=== PATIENT | female | born 1950 | race Caucasian/White ===

== ENCOUNTER 2020-05-24 08:47 | Outpatient (CLI) | payer MEDICARE, SELFPAY ==
--- NOTE | ~2020-05-24 | MM_ITS ---
EXAMINATION: MM screening rusty BI w michael HISTORY: Screening TECHNIQUE: Craniocaudal and mediolateral oblique 3-D tomosynthesis images were obtained and synthetic 2-D images were generated. CAD analysis was submitted and interpreted. COMPARISON: Comparison to multiple prior studies sequentially, with oldest reviewed study dated 04/2013. BREAST PARENCHYMAL COMPOSITION: There are scattered areas of fibroglandular density. FINDINGS: There are subglandular silicone implants. There is no evidence of suspicious mass, calcific ation, or architectural distortion to suggest malignancy in either breast. There has been no suspicio us interval change. IMPRESSION: 1. No mammographic evidence of malignancy. 2. Recommend routine screening mammography in one year. BI-RADS Category 1: Negative Reviewed, dictated and finalized at location A.
== END 2020-05-24 08:48 | disposition home or self-care (01) ==
PROVIDERS: PCP Internal Medicine; Visit Provider Internal Medicine
DX: Z12.31 Encounter for screening mammogram for malignant neoplasm of breast (principal)
CPT/HCPCS: 77063; 77067

== ENCOUNTER 2020-10-10 13:05 | Outpatient (CLI) | payer MEDICARE, SELFPAY ==
--- NOTE | 2020-10-10 13:08 | ECG_ITS ---
Measurements Intervals [place] Rate: 64 P: 26 GA: 180 QRS: 8 QRSD: 86 T: 27 QT: 388 QTc: 400 Interpretive Statements SINUS RHYTHM BORDERLINE R WAVE PROGRESSION, ANTERIOR LEADS BASELINE ARTIFACT- I, II, III, AVR, AVL, AVF BORDERLINE ECG Electronically Signed On 10-10-2020 13:25:11 PALLIATIVE CARE SPECIALIST by Sukhdeep Nicholson D.O.
[2020-10-10 13:38] LABS: Anion Gap 8 mmol/L (8-16); Blood Urea Nitrogen 27 mg/dL (7-17); Calcium 9.9 mg/dL (8.4-10.2); Carbon Dioxide 32 mmol/L (22-30); Chloride 100 mmol/L (98-107); Estimated Glomerular Filt Rate 41; Glucose 106 mg/dL (65-105); Potassium 4.1 mmol/L (3.4-5.0); Sodium 140 mmol/L (137-145)
== END 2020-10-10 13:06 | disposition home or self-care (01) ==
LOC: ANHSURGERY 13:08
PROVIDERS: Anesthesiology; PCP Internal Medicine; Visit Provider Plastic Surgery
DX: Z79.899 Other long term (current) drug therapy (principal); I10 Essential (primary) hypertension; Z01.818 Encounter for other preprocedural examination; R94.31 Abnormal electrocardiogram [ECG] [EKG]
CPT/HCPCS: 36415; 80048; 93005

== ENCOUNTER 2020-10-12 01:10 | Outpatient (CLI) | payer MEDICARE, SELFPAY ==
[2020-10-12 20:15] LABS: SARS-CoV-2 RNA PCR Negative
== END 2020-10-12 01:11 | disposition home or self-care (01) ==
LOC: ANHCOVIDDT 01:11
PROVIDERS: PCP Internal Medicine; Visit Provider Plastic Surgery
DX: Z01.818 Encounter for other preprocedural examination (principal); Z20.828 Contact with and (suspected) exposure to other viral communicable diseases
CPT/HCPCS: 87635; C9803; U0003

== ENCOUNTER 2020-10-16 00:39 | Day surgery (SDC) | payer MEDICARE, SELFPAY ==
[2020-10-09 12:32] VITALS: BMI 33.5
[2020-10-16 06:04] VITALS: BP 143/69; PULSE 79; RESP 20; TEMP 36.3; O2SAT 98
[2020-10-16] MEDS: LACTATED RINGERS 1,000 ML 30 ML IV CONT (06:30)
--- NOTE | 2020-10-16 06:59 | WPDHPUPDATE1 ---
History and Physical Update Update Date/Time: 10/16/20 06:59 History and Physical has been reviewed, including an updated exam of the patient. There are NO changes in the patient's condition. Risks, benefits, and alternatives have been discussed and questions answered. Patient agrees to proceed with procedure.
--- NOTE | 2020-10-16 07:06 | WPDANESEPPF ---
Anes - Initial Pre Proc Eval Procedure: Operation Date: 10/16/20 07:30 Proposed Procedures p Excision Basal Cell Carcinoma Right Lateral Nasal Lobe With Frozen Section, Excision Of Basal Cell Carcinoma Left Anterior Nasal Lobe With Frozen Section, Possible Full Thickness Skin Graft Or Local Tissue Transfer Both Sites - Michael Sommers MD Date/Time: 10/16/20 07:06 Surgeon: Michael Sommers MD Pre Op Diagnosis: Basal Cell CA R Lateral Lobe, Basal Cell CA L Ante Patient Data Age: 69 Gender: F Height: 5 ft 4 in Weight: 90.75 kg Last Vital Signs Temp 97.4 F L 10/16/20 06:04 Pulse 79 10/16/20 06:04 Resp 20 10/16/20 06:04 BP 143/69 H 10/16/20 06:04 Pulse Ox 98 10/16/20 06:04 Allergies Allergy/AdvReac Type Severity Reaction Status Date / Time No Known Allergies Allergy Mild Unverified 10/16/20 06:28 Home Medications Medication Instructions Recorded Confirmed Type aspirin [Aspirin Low Dose] 81 mg PO DAILY 10/09/20 10/16/20 History lisinopril-hydrochlorothiazide 1 tablet QAM 10/09/20 10/16/20 History pravastatin 40 mg QAM 10/09/20 10/16/20 History Patient hx anesthesia problems: none Family hx anesthesia problems: none [facility] Past Medical History Medical History (Updated 10/16/20 @ 07:03 by Minesh Aviles MD) Hyperlipidemia Hypertension Social History Social History Smoking status: Never smoker Alcohol intake: never Substance use: never Living arrangements: with family Spiritual care concerns: No Anes - Eval Final PreProcedure Day of Procedure 10/16/20 07:06 Patient weight: obese Heart: regular rate and rhythm Lungs: clear to auscultation Airway: Mallampati scale class II Neurological: alert and oriented Last oral intake: >/= 8 hours ASA classification: III Emergent: no Anesthetic plan: proceed Anesthesia type and monitoring: general GIVS (may use LMA ) and standard monitoring Informed Consent: The patient's anesthetic plan and its attendant risks and benefits were discussed with the patient/family/POA. Questions were solicited and answers provided to the satisfaction of the patient/family/POA.
[2020-10-16] MEDS: MIDAZOLAM HCL (*CRX) 2 MG/2 ML VIAL IV PUSH (07:17)
[2020-10-16] MEDS: LIDO 1%/EPINEPHRINE 1:100,000 20 ML VIAL 12 ML INFILTRATE (08:31)
[2020-10-16] MEDS: BACITRACIN OINTMENT 15 GM TUBE 1 APPLIC TOPICAL (10:05)
[2020-10-16 10:23] VITALS: BP 112/65; PULSE 67; RESP 20; TEMP 36; O2SAT 92
--- NOTE | 2020-10-16 10:44 | P.OP_ITS ---
Procedure Note - Detailed Date of procedure: 10/16/20 Pre-op diagnosis: Basal Cell CA R Lateral Lobe, Basal Cell CA L Ante Post-op diagnosis: same Procedure performed: 1. 1.5 cm excision of basal cell carcinoma of the right posterior nasal lobule with frozen section x2 and local tissue transfer 5 sq cm. 2. 1.5 cm excision left interior nasal lobule with frozen section x2 and full- thickness skin graft 1.5 sq cm Description of procedure: The 2 sites on the nasal lobule were marked as the patient was in the holding area. These were clearly visible as the right posterior nasal lobule and the left anterior nasal lobule. She was taken to the operating room where she was placed supine on the operating table a time-out was held and confirmed. She was given IV sedation. The Face was prepped and draped in usual fashion. The 2 sites were remarked and carefully inspected under loupe magnification for peripheral margin marking. Each was infiltrated with 1% lidocaine with epinephrine. The lesion from the left side was taken 1st as a f ull-thickness skin ellipse. The most superior aspect was marked with a suture for frozen section. The pathologist reported later that the margins between 2 and 5:00 o'clock were positive for basal cell carcinoma. A 2nd ellipse was taken from the 12 to 6 o'clock margin. The tissue was marked at the 3:00 o'clock new margin and sent for frozen section. The pathologist reported margins were free. The 2nd specimen from the right posterior nasal lobule was taken as a circular ellipse and sent to the pathologist. He reports that margins are positive including the deep margin. A 1-1/2 mm peripheral re-excision was done and the specimen included the base of the wound. The pathologist reports on that tissue that margins were free except for a small new focus at the 6:00 o'clock tip that probably represents a new tumor and was quite small. An ellipse at the 6:00 o'clock margin was taken and sent for permanent section. The left nasal tip wound was closed with a full-thickness skin graft taken from the left upper neck. This was defatted and inset with 6 0 nylon including quilting sutures. She is discharged with prescriptions for Keflex 500 mg #15 and Tramadol 50 mg #10. Surgeon: Michael Sommers MD
[2020-10-16 10:50] VITALS: BP 104/56; PULSE 59; RESP 18; O2SAT 92
[2020-10-16 11:20] VITALS: BP 109/60; PULSE 55; RESP 18; O2SAT 94
[2020-10-16 11:40] VITALS: BP 110/54; PULSE 59
== END 2020-10-16 11:46 | disposition home or self-care (01) ==
PROVIDERS: PCP Internal Medicine; Visit Provider Plastic Surgery
PROC: (CPT 11642; principal; 2020-10-16 07:30)
DX: C44.311 Basal cell carcinoma of skin of nose (principal); I10 Essential (primary) hypertension; E78.5 Hyperlipidemia, unspecified; E66.9 Obesity, unspecified; Z68.34 Body mass index [BMI] 34.0-34.9, adult
CPT/HCPCS: 11642; 15260; 14060; 36415; 80048; 87635; 88305; 88331; 93005; A9270; C9803; J2250; J2704; J7120; U0003

== ENCOUNTER 2021-10-10 10:40 | Outpatient (CLI) | payer MEDICARE, SELFPAY ==
--- NOTE | ~2021-10-10 | MM_ITS ---
EXAMINATION: MM scrn rusty implant BI w michael HISTORY: Screening mammogram TECHNIQUE: Craniocaudal and mediolateral oblique 3-D tomosynthesis images with implant displacement a nd synthetic 2-D images were generated. Craniocaudal and mediolateral oblique views of the breasts wi thout implant displacement were obtained using full field digital mammography. CAD analysis was submi tted and interpreted. COMPARISON: Comparison to multiple prior studies sequentially, with oldest reviewed study dated 11/16. BREAST PARENCHYMAL COMPOSITION: There are scattered areas of fibroglandular density. FINDINGS: There is no evidence of suspicious mass, calcification, or architectural distortion to sugg est malignancy in either breast. There has been no suspicious interval change. IMPRESSION: 1. No mammographic evidence of malignancy. 2. Recommend routine screening mammography in one year. BI-RADS Category 1: Negative Reviewed, dictated and finalized at location A. 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
== END 2021-10-10 10:41 | disposition home or self-care (01) ==
LOC: ANHIMG 10:43
PROVIDERS: PCP Internal Medicine; Visit Provider Nurse Practitioner Obstetrics & Gynecology
DX: Z12.31 Encounter for screening mammogram for malignant neoplasm of breast (principal)
CPT/HCPCS: 77063; 77067

== ENCOUNTER → 2022-02-24 12:21 | Outpatient (CLI) | payer MEDICARE, SELFPAY ==
--- NOTE | ~2022-02-24 | DEXA_ITS ---
Bone Density Report Name: EL ADRIAN Age: 71 Sex: Female Ethnicity: White Date of : 1950 Indication: postmenopausal; screening for osteoporosis; parental hip fracture; Referring Provider: RAYMUNDO, SALLY [place] Study: Bone densitometry was performed. Exam Date: February 24, 2022 Accession number: [id number] Bone Density: Region BMD T-score Z-score Classification AP Spine (L1-L4) 1.220 1.6 3.8 Normal Femoral Neck (Left) 0.932 0.7 2.6 Normal Total Hip (Left) 1.192 2.0 3.6 Normal Femoral Neck (Right) 0.915 0.6 2.5 Normal Total Hip (Right) 1.242 2.5 4.0 Normal Total Hip Mean 1.217 2.3 3.8 Normal World Health Organization criteria for BMD impression classify patients as: Normal (T-score at or above -1.0), Osteopenia (T-score between -1.0 and -2.5), or Osteoporosis (T-score at or below -2.5). 10-year Fracture Risk: FRAX not reported because: All T-scores for Spine Total, Hip Total, Femoral Neck at or above -1.0 Previous Exams: Region Exam Age BMD T-score BMD Change BMD Change Date g/cm2 vs Baseline vs Previous AP Spine(L1-L4) 02/24/2022 71 1.220 1.6 -0.038 0.007 12/07/2018 68 1.213 1.5 -0.045 -0.081* 08/31/2012 61 1.294 2.2 0.036 0.078* 05/06/2009 58 1.216 1.5 -0.042 0.025* 08/06/2006 55 1.191 1.3 -0.067 -0.067 09/13/2002 51 1.258 1.9 Total Hip(Left) 02/24/2022 71 1.192 2.0 -0.064 -0.100 12/07/2018 68 1.292 2.9 0.035 0.007 08/31/2012 61 1.284 2.8 0.028 0.144* 05/06/2009 58 1.141 1.6 -0.116 -0.127* 08/06/2006 55 1.268 2.7 0.012 0.012 09/13/2002 51 1.256 2.6 Total Hip(Right) 02/24/2022 71 1.242 2.5 -0.052 0.060 12/07/2018 68 1.182 2.0 -0.112 -0.108* 08/31/2012 61 1.289 2.8 -0.005 0.103* 05/06/2009 58 1.186 2.0 -0.108 -0.116* 08/06/2006 55 1.302 3.0 0.008 0.008 09/13/2002 51 1.294 2.9 *Denotes significance at 95% confidence level, LSC for AP Spine = 0.022 g/cm2, LSC for Total Hip = 0.027 g/cm2 Clinical Information Provided by Patient: Parent has had a hip fracture Has used the following medications: Vitamin D, Calcium, MTV Patient maximum height was 63.5 Menopause Age: 48 No regular weight bearing exercise Drinks ca
== END ==
PROVIDERS: PCP Internal Medicine; Visit Provider Internal Medicine
DX: Z13.820 Encounter for screening for osteoporosis (principal); Z78.0 Asymptomatic menopausal state; M81.0 Age-related osteoporosis without current pathological fracture
CPT/HCPCS: 77080

== ENCOUNTER 2024-06-13 07:00 | Outpatient (NON) | payer MEDICARE, SELFPAY | END 2024-06-13 07:01 | disposition home or self-care (01) | LOC: ANHLAB 06-14 09:15 | PROVIDERS: PCP Internal Medicine; Visit Provider Internal Medicine Gastroenterology | DX: Z86.010 Personal history of colon polyps (principal) | CPT/HCPCS: 88305 ==

== ENCOUNTER 2024-06-13 07:23 | Day surgery (SDC) | payer MEDICARE, SELFPAY ==
[2024-05-03 11:13] VITALS: BMI 28.5
[2024-06-05 12:16] VITALS: BMI 28.5
--- NOTE | 2024-06-12 12:54 | PM.HPGS ---
History of Present Illness History of Present Illness Consent: Risks, benefits, and alternatives have been discussed and questions answered. Patient agrees to proceed with procedure. Chief complaint: Personal History of Colon Polyps Narrative: Dorina Moss is a 73 year old female with history of colon polyps. Review of Systems Review of Systems: All systems reviewed & are unremarkable except as noted in HPI and below PMFSH Past Medical History Medical History Hyperlipidemia Hypertension Social History Social History Smoking status: Never smoker Alcohol intake: current Drinks per week: 2 Substance use: never Substance use type: does not use Living arrangements: alone Spiritual care concerns: No Meds Home Medications and Allergies Home Medications Medication Instructions Recorded Confirmed Type aspirin 81 mg tablet,delayed 81 mg PO DAILY 10/09/20 06/13/24 History release (Amanda Low Dose Aspirin) lisinopril 20 1 tablet QAM 10/09/20 06/13/24 History mg-hydrochlorothiazide 12.5 mg tablet atorvastatin 20 mg tablet 20 mg PO HS 06/05/24 06/13/24 History prednisone 5 mg tablet 7.5 mg PO DAILY 06/05/24 06/13/24 History Allergies Allergy/AdvReac Type Severity Reaction Status Date / Time No Known Allergies Allergy Mild Verified 06/13/24 08:05 Exam Resp: Auscultation: clear to auscultation bilaterally Cardio: Rate: regular rate Rhythm: regular rhythm GI: GI Palp: Yes Soft to palpation and No Tenderness to palpation present (GI) Assessment and Plan Assessment and plan (1) Personal history of colonic polyps: Code(s): Z86.010 - Personal history of colonic polyps Status: Acute Assessment and Plan: Colonoscopy with possible biopsy or polypectomy or cautery or injection of substances.
[2024-06-13 08:06] VITALS: BP 109/65; PULSE 61; RESP 15; TEMP 36.8; O2SAT 97
[2024-06-13] MEDS: LACTATED RINGERS 1,000 ML 150 ML IV CONT (08:11)
--- NOTE | 2024-06-13 09:30 | WPDANESEPPF ---
Anes - Initial Pre Proc Eval Procedure: Operation Date: 06/13/24 09:30 Proposed Procedures p Diagnostic Colonoscopy - Guille Lott MD Date/Time: 06/13/24 09:30 Surgeon: Guille Lott MD Pre Op Diagnosis: Personal History of Colon Polyps Patient Data Age: 73 Gender: F Height: 1.6 m Weight: 70.4 kg Last Vital Signs Temp 36.8 C 06/13/24 08:06 Pulse 61 06/13/24 08:06 Resp 15 06/13/24 08:06 BP 109/65 06/13/24 08:06 Pulse Ox 97 06/13/24 08:06 O2 Del Method Room Air 06/13/24 08:06 Allergies Allergy/AdvReac Type Severity Reaction Status Date / Time No Known Allergies Allergy Mild Verified 06/13/24 08:05 Home Medications Medication Instructions Recorded Confirmed Type aspirin 81 mg tablet,delayed 81 mg PO DAILY 10/09/20 06/13/24 History release (Amanda Low Dose Aspirin) lisinopril 20 1 tablet QAM 10/09/20 06/13/24 History mg-hydrochlorothiazide 12.5 mg tablet atorvastatin 20 mg tablet 20 mg PO HS 06/05/24 06/13/24 History prednisone 5 mg tablet 7.5 mg PO DAILY 06/05/24 06/13/24 History Patient hx anesthesia problems: none Family hx anesthesia problems: none Results Review: All pre-operative results and documents have been reviewed as part of the pre-operative evaluation. [facility] Past Medical History Medical History (Updated 06/13/24 @ 09:30 by Duncan Durbin MD) Hyperlipidemia Hypertension Sarcoid Social History Social History Smoking status: Never smoker Alcohol intake: current Drinks per week: 2 Substance use: never Substance use type: does not use Living arrangements: alone Spiritual care concerns: No Anes - Eval Final PreProcedure Day of Procedure 06/13/24 09:30 Patient weight: overweight Heart: regular rate and rhythm Lungs: clear to auscultation Airway: Mallampati scale class II Neurological: alert and oriented Last oral intake: >/= 8 hours ASA classification: III Emergent: no Anesthetic plan: proceed Anesthesia type and monitoring: general GIVS and standard monitoring Results Review: All pre-operative results and documents have been reviewed as part of the pre-operative evaluation. Informed Consent: The patient's anesthetic plan and its attendant risks and benefits were discussed with the patient/family/POA. Questions were solicited and answers provided to the satisfaction of the patient/family/POA.
[2024-06-13 09:57] VITALS: BP 86/48; PULSE 56; RESP 14; O2SAT 99
[2024-06-13 10:07] VITALS: BP 104/51; PULSE 53; RESP 18; O2SAT 100
--- NOTE | 2024-06-13 10:09 | WPDANESPN ---
Anes - Prog Note Post-Op Date/Time: 06/13/24 10:09 Cardiovascular status: normal Respiratory status: normal Airway patency: baseline Mental status: baseline Post-Op hydration status: normal Vital Signs: Last Vital Signs Temp 36.8 C 06/13/24 08:06 Pulse 61 06/13/24 08:06 Resp 15 06/13/24 08:06 BP 109/65 06/13/24 08:06 Pulse Ox 97 06/13/24 08:06 O2 Del Method Room Air 06/13/24 08:06 Pain Score (VAS): 0/10 I/O: Intake & Output 06/12/24 06/13/24 06/13/24 23:59 07:59 15:59 Intake Total 400 Balance 400 Patient Feedback: Patient satisfied with anesthetic care.
[2024-06-13 10:17] VITALS: BP 88/56; PULSE 56; RESP 18; O2SAT 99
== END 2024-06-13 10:25 | disposition home or self-care (01) ==
PROVIDERS: PCP Internal Medicine; Visit Provider Internal Medicine Gastroenterology
PROC: 0DJD8ZZ Inspection of Lower Intestinal Tract, Via Natural or Artificial Opening Endoscopic (ICD-10-PCS; CPT 45378; principal; 2024-06-13 09:30)
DX: Z86.010 Personal history of colon polyps (principal); Z12.11 Encounter for screening for malignant neoplasm of colon; D12.0 Benign neoplasm of cecum; K57.30 Diverticulosis of large intestine without perforation or abscess without bleeding; K64.8 Other hemorrhoids
CPT/HCPCS: 45385

== ENCOUNTER 2024-07-10 08:28 | Outpatient (CLI) | payer MEDICARE, SELFPAY ==
--- NOTE | ~2024-07-10 | MM_ITS ---
EXAMINATION: MM scrn rusty implant BI w michael HISTORY: Screening mammogram TECHNIQUE: Craniocaudal and mediolateral oblique 3-D tomosynthesis images with implant displacement a nd synthetic 2-D images were generated. Craniocaudal and mediolateral oblique views of the breasts wi thout implant displacement were obtained using full field digital mammography. CAD analysis was submi tted and interpreted. COMPARISON: 10/10/2021, 05/24/2020 BREAST PARENCHYMAL COMPOSITION: The breasts are heterogeneously dense, which may obscure small masses . FINDINGS: There is no evidence of suspicious mass, calcification, or architectural distortion to sugg est malignancy in either breast. There has been no suspicious interval change. IMPRESSION: No mammographic evidence of malignancy. Recommend routine screening mammography in one year. BI-RADS Category 1: Negative Reviewed, dictated and finalized at [facility].
== END 2024-07-10 08:29 | disposition home or self-care (01) ==
LOC: ANHIMG 08:29
PROVIDERS: PCP Internal Medicine; Visit Provider Nurse Practitioner Obstetrics & Gynecology
DX: Z12.31 Encounter for screening mammogram for malignant neoplasm of breast (principal)
CPT/HCPCS: 77063; 77067

== ENCOUNTER 2025-03-05 08:13 | Outpatient (CLI) | payer MEDICARE, SELFPAY ==
--- NOTE | ~2025-03-05 | DEXA_ITS ---
Bone Density Report Name: EL ADRIAN Age: 74 Sex: Female Ethnicity: White Date of : 1950 Indication: postmenopausal; screening for osteoporosis; Referring Provider: RAYMUNDO, SALLY [place] Study: Bone densitometry was performed. Exam Date: March 05, 2025 Accession number: [id number] Bone Density: Region BMD T-score Z-score Classification AP Spine(L1-L4) 1.135 0.8 3.2 Normal Femoral Neck (Left) 0.757 -0.8 1.2 Normal Total Hip (Left) 1.011 0.6 2.3 Normal Femoral Neck (Right) 0.793 -0.5 1.5 Normal Total Hip (Right) 1.047 0.9 2.6 Normal Total Hip Mean 1.029 0.8 2.5 Normal World Health Organization criteria for BMD impression classify patients as: Normal (T-score at or above -1.0), Osteopenia (T-score between -1.0 and -2.5), or Osteoporosis (T-score at or below -2.5). 10-year Fracture Risk: FRAX not reported because: All T-scores for Spine Total, Hip Total, Femoral Neck at or above -1.0 Clinical Information Provided by Patient: Has used the following medications: Calcium Patient maximum height was 63.0 Menopause Age: 51 No regular weight bearing exercise Drinks caffeinated beverages Onset of menses at age 13 Number of children 2 Impression: The patient has normal bone mass. Discussion: BONE DENSITY IS ABOVE THE MINIMUM DESIRABLE LEVEL AT ALL SKELETAL SITES TESTED. This patient?s bone mineral density is above the minimum desirable level (T-score -1.0 or better) at all sites measured. The patient should follow a healthful lifestyle (good nutrition with adequate calcium and vitamin D, and appropriate weight-bearing exercise). Follow-Up: Consider repeating this study in 5 years or sooner if there is some new clinical indication. Reported by: YOHANA on 03/05/2025 8:51:00 AM. Reviewed, dictated and finalized at location AMin [facility]
--- OUTSIDE RECORDS SUMMARY | 2025-03-05 08:21 | XMS_ITS | Clinical Summary ---
Author Organization [facility] Address [address] [place] [address] Phone Care Team Providers Care Guide Dog Trainer Name Role Phone Annabelle Nuno MD Primary Care Provider [phone] Allergies No known active allergies Medications ESTRADIOL/NORETH AC (ACTIVELLA PO) Take by mouth. Active Active Problems Patient Care Coordination No te Formatting of this note migh t be different from the original. Dr victor hugo matthews No known active problems Family History Medical History Relation Name Comments Cancer Father prostate & bone Cancer Mother ? 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 Gender Identity Not on file Sexual Orientation Not on file Occupation Industry Job Start Date Job End Date Not on file Not on file Not on file Not on file Last Filed Vital Signs Vital Sign Reading Time Taken Comments Blood Pressure 140/87 12/02/2009 1:53 PM STAFF ANESTHESIOLOGIST Pulse - - Temperature - - Respiratory Rate - - Oxygen Saturation - - Inhaled Oxygen Concentration - - Weight 99.8 kg (220 lb) 12/02/2009 1:53 PM STAFF ANESTHESIOLOGIST Height 162.6 cm (5' 4 ) 12/02/2009 1:53 PM STAFF ANESTHESIOLOGIST Body Mass Index 37.76 12/02/2009 1:53 PM STAFF ANESTHESIOLOGIST Plan of Treatment Health Maintenance Due Date Last Done Comments DTAP/TDAP/TD VACCINES (1 - Tdap) 1969 COLORECTAL SCREENING 1995 Colorectal Cancer Screening 1995 FIT-DNA Q 3 years 1995 FIT/FOBT Q 1 year 1995 Flex Sig/CT Colonography Q 5 years 1995 PNEUMOCOCCAL VACCINE 50+ YEA RS (1 of 1 - PCV) 2000 ZOSTER VACCINE (1 of 2) 2000 BREAST CANCER SCREENING 06/04/2011 06/04/20 10, 12/02/2009, 05/09/2009, Additional history exists OSTEOPOROSIS SCREENING 2015 INFLUENZA VACCINE (#1) 2024 RSV VACCINE (60+ or ) (1 - 1-dose 75+ series) 2025 Procedures Procedure Name Priority Date/Time Associated Diagnosis Comments MAMMO SCREEN BILAT W OR WO CAD Routine 06/04/2010 from Last 3 Months or Most Recently Relevant to Health Maintenance Results * MAMMO DIGITAL SCREEN BILAT (06/04/2010) Anatomical Region Laterality Modality Breast Bilateral Other us Abstract Provider MAMMO ORDERABLES Final Result from Last 3 Months or Most Recently Relevant to Health Maintenance Care Teams Guide Dog Trainer Relationship Specialty Start Date End Date Annabelle Nuno MD [address] [place] [address] PCP - General 05/30/09
--- OUTSIDE RECORDS SUMMARY | 2025-03-05 08:21 | XMS_ITS | Referral Summary ---
Author Organization [facility] Address [address] [place] [address] Care Team Providers Care Testing Director Name Role Phone Asher Rodriguez MD Primary Care Provider Encounters Date Type Department Care Team Description 01/29/2025 Orders Only [facility] [address] [facility] 8th [place] [address] [place] [id number] Mata Olvera MD 01/29/2025 9:58 AM CDT - 01/29/2025 11:59 PM CDT Hospital Encounter [facility] [address] [place] [address] Mata Olevra MD Sarcoidosis Discharge Disposition: Discharge to home or self care 01/29/2025 12:30 PM CDT Office Visit [facility] [address] [facility] 8th [place] [address] [place] [id number] Mata Olvera MD Sarcoidosis (Primary Dx) 01/29/2025 10:33 AM CDT - 01/29/2025 11:59 PM CDT Hospital Encounter [facility] [address] [facility] [address] [place] [id number] Sarcoidosis Discharge Disposition: Discharge to home or self care from Last 3 Months Allergies No known active allergies Medications atorvastatin (LIPITOR) 20 mg tabletIndicati ons:hyperlipid emia Take 1 tablet (20 mg total) by mouth every morning Active calcium carbonate (OS-AISHWARYA) 1,625 mg (650 mg elemental) tabletIndicati ons:Hypocalcem ia Prevention Take 1 tablet (1,625 mg total) by mouth every morning Active turmeric 400 mg capsuleIndicat ions:supplemen t Take 500 mg by mouth Curcumin also Active biotin 10,000 mcg capsuleIndicat ions:Biotin Deficiency Take 1 capsule (10,000 mcg total) by mouth every morning Active acetaminophen (TYLENOL) 500 mg tablet Take 1 tablet (500 mg total) by mouth every 6 (six) hours as needed for pain Active oxyCODONE (ROXICODONE) 5 mg immediate release tabletIndicati ons:Pain Take 1 tablet (5 mg total) by mouth every 4 (four) hours as needed for pain 30 tablet 03/19/20 Active Additional Information Patient not taking.Reported on 04/26/2023 polyethylene glycol (MIRALAX) 17 gram packetIndicati ons:constipati on Take 1 packet (17 g total) by mouth daily as needed for constipation May obtain over the counter and use as directed. 03/19/20 Active Additional Information Patient not taking.Reported on 04/26/2023 ibuprofen (ADVIL,MOTRIN) 200 mg tab/cap Take 2 tablet/capsule (400 mg total) by mouth every 6 (six) hours as needed for pain May obtain over the counter and use as directed. 03/19/20 23 Active vitamin E (AQUASOL E) 200 unit capsule Take 1 capsule (200 Units total) by mouth every morning 03/19/20 23 Active lisinopril-hyd roCHLOROthiazi de (ZESTORETIC) 20-12.5 mg per tablet Take 1 tablet by mouth daily 04/07/20 23 Active multivitamin capsule Multivitamin 50 Plus tablet Take 1 tablet every day by oral route. 04/12/20 20 Active ferrous sulfate 325 mg (65 mg of elemental iron) tabletIndicati ons:Iron Deficiency Anemia Take 1 tablet (65 mg of elemental iron total) by mouth 3 (three) times a day with meals Active cyanocobalamin (Vitamin B-12) 1,000 mcg tabletIndicati ons:Prevention of Vitamin B12 Deficiency Take 1 tablet (1,000 mcg total) by mouth daily Active mycophenolate mofetil (CELLCEPT) 500 mg tablet Take 1 tablet (500 mg total) by mouth 2 (two) times a day 60 tablet 03/14/20 24 025 Active azaTHIOprine (IMURAN) 50 mg tabletIndicati ons:autoimmune disease,[place] d Take 3 tablets (150 mg total) by mouth daily 90 tablet 2 11/30/19 25 Active umeclidinium-v ilanteroL (Anoro Ellipta) 62.5-25 mcg/actuation blister with device Inhale 1 puff by mouth once daily 60 each 5 02/07/20 25 Active umeclidinium-v ilanteroL (ANORO ELLIPTA) 62.5-25 mcg/actuation blister with device Inhale 1 puff daily 60 each 5 07/31/20 24 025 Discontinued predniSONE (DELTASONE) 2.5 mg tablet Take 1 tablet (2.5 mg) by mouth daily for 14 days, THEN 1 tablet (2.5 mg) every other day for 14 days. 21 tablet 01/30/20 25 025 Active Problems Patient Care Coordination No te Formatting of this note migh t be different from the original. Referring Provider: Asher Rodriguez MD This is a 72-year-old female presenting to us with a pulmonary nodule. She has a medical history significant for hypercholesteremia, anxiety, hypertension and osteoarthritis. She underwent a chest x-ray on 01/28/2023. There are numerous nodules throughout both lungs, likely noncalcified. There may be a calcified granuloma in the right lung base near the costophrenic angle. No pneumothorax or pleural effusions. The heart is not enlarged. No fractures are identified about the bony thorax. There may be a retrocardiac hiatal hernia. There are bilateral breast implants. She underwent a chest CT on 01/29/2023. There are numerous noncalcified pulmonary nodules throughout both lungs. A few of the dominant nodules are listed here: 10 mm in the right lower lobe; 12 mm in the right middle lobe; 10 mm in the left lower lobe. No pneumothorax, pulmonary edema, pleural effusions or consolidative infiltrates. There are numerous enlarged mediastinal lymph nodes. No suspicious axillary adenopathy. The heart is borderline enlarged. There are extensive coronary artery calcifications. The central pulmonary arteries are ectatic. No thoracic aortic aneurysm. There are bilateral prepectoral breast implants. The thyroid is not enlarged and is not appear nodular. There is a large paraesophageal hiatal hernia measuring 11 cm transverse. There is an intraosseous hemangioma involving the T9 vertebral body. No fractures, lytic lesions or blastic lesions are identified about the bony thorax. There is moderate thoracic degenerative disc disease. There is fecal retention and diverticulosis involving the partially visualized colon. No adrenal nodules are identified bilaterally. No masses are identified in the liver, which is not fully imaged here. She underwent a CT of the abdomen and pelvis on 01/29/2023. There are noncalcified pulmonary nodules in the bilateral lung bases. There is mild patchy air trapping in the bilateral lung bases. Large paraesophageal hernia is re-identified measuring 12 cm transverse. The liver, spleen, gallbladder, pancreas, kidneys and adrenal glands are unremarkable. No abdominal aortic aneurysm or dissection. There are atherosclerotic calcification of the abdominal aorta and major branches. 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 There is a small fatty umbilical hernia. No abnormal bowel dilatation, free air, free fluid or suspicious adenopathy. There is fecal retention in the mid to distal colon. There are colonic diverticula, greatest in the sigmoid colon, without evidence of acute diverticulitis. Pessary device is present. The appendix is not definitely visualized, and there are no secondary signs of acute appendicitis. The uterus and urinary bladder unremarkable. There are small fatty bilateral inguinal indirect hernias. There is advanced lumbar degenerative disc disease and facet arthropathy with moderate spinal canal stenosis at L4 through L5; significant neural foraminal stenosis in the right at L1 through L2 and L3 through L4; significant neural foraminal stenosis at the left L3 through L4 and L5 through S1; grade 1 anterior listhesis L4 on L5 without evidence of spondylolysis. No lytic or blastic lesions are identified within the visualized bony structures to suggest bony metastasis. She is here for further surgical evaluation and discussion. Problem Noted Date Diagnosed Date Sarcoidosis 04/26/2023 Lung nodule 03/18/[address] 03/09/2023 Hiatal hernia without gangrene and obstruction 0 03/09/2023 Presence of pessary 03/09/2023 Uterine prolapse 02/06/2022 03/09/2023 Social History Tobacco Use Types Packs/Day Years Used Date Smoking Tobacco: Never Passive Smoke Exposure: Past Smokeless Tobacco: Never Tobacco Cessation:Counseling Given: Not Answered AUDIT-C Answer Date Recorded Q1: How often do you have a drink containing alc ohol? Monthly or less 03/18/2023 Q2: How many drinks containi ng alcohol do you have on a typical day when you are drinking? 1 or 2 03/18/2023 Q3: How often do you have si x or more drinks on one occasion? Never 03/18/2023 Personal Safety Answer Date Recorded Have you ever been in or are you currently in a harmful physical or emotional relationship or is someone making you feel afraid or unsafe? 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 Gender Identity Not on file Sexual Orientation Not on file Last Filed Vital Signs Vital Sign Reading Time Taken Comments Blood Pressure 120/74 01/29/2025 12:44 PM CDT Pulse 80 01/29/2025 12:44 PM CDT Temperature 36.8 C (98.2 F) 01/29/2025 12:44 PM CDT Respiratory Rate 18 01/29/2025 12:44 PM CDT Oxygen Saturation 95% 01/29/2025 12:44 PM CDT Inhaled Oxygen Concentration - - Weight 74.4 kg (164 lb) 01/29/2025 12:44 PM CDT Height 154.9 cm (5' 1 ) 01/29/2025 12:44 PM CDT Body Mass Index 30.99 01/29/2025 12:44 PM CDT Plan of Treatment Not on file Procedures Procedure Name Priority Date/Time Associated Diagnosis Comments PULMONARY FUNCTION TEST (PFT) Routine 01/29/2025 11:[address] CHEST WO CONTRAST Schedule Routine, Read Routine (OP Routine) 01/29/2025 10:22 AM CDT Sarcoidosis from Last 3 Months Results * Pulmonary Function Test - (01/29/2025 11:45 AM CDT) FVC PRE 2.69 L [facility] FVC %PRE PRED 114 % [facility] FEV1 PRE 1.65 L [facility] FEV1 %PRE PRED 89 % [facility] FEV1/FVC PRE 61.3 % [facility] Anatomical Region Laterality Modality PFT 01/29/2025 11:3 0 AM CDT Narrative 01/29/2025 4:56 PM CDT Table formatting from the original result was not included. [facility] Division of Pulmonary & Critical Care Medicine [address] [place] [address]; [place] [address]; [place] [address]; [phone] Pulmonary Function Laboratory Pulmonary Stress Test Simple/Oxygen Assessment Patient: Dorina Bird Date: 01/29/2025 : 1950 Ht: 61 IN Wt: 164 LBS Time (min) Distance (ft)/ Ordaz O2 L/M SpO2 HR Carlos* BP FEV1 % Pred Rest: RA 98 60 0 117/67 1.65 89% Walk/Bike: 1 RA 100 92 0 2 RA 95 108 2 3 RA 98 111 3 4 RA 98 116 4 5 RA 100 117 4 6 min 0 sec RA 100 125 4 Recovery: 1 RA 100 97 3 148/81 1.61 87% 3 RA 100 73 0 *Carlos rate of perceived exertion (1-10 dyspnea scale) Robert, CHEST 2003; [id number] Walk Test Summary: Six Minute Walk Distance: 1200 ft Six-minute Walk Work [distance (m) x body wt (kg)]: 29724 kg.m (normal >60,000kg.m) Oxygen required to maintain SpO2 greater than 90% during six minutes of walkin L/M Comments: O2A- 0 STOPS Interpretation: Breathing room air, SpO2 is normal at rest. During exercise sufficient to increase pulse, SpO2 is stable. On this basis, SpO2 is adequate at rest breathing room air and while walking breathing room air. This level of exercise is associated with no significant change of FEV1. Nabeel Valerio MD By signing this report, the attending pulmonary physician certifies that he/she has personally reviewed and interpreted the graphic and numerical data associated with this pulmonary function study and has reviewed and /or edited a preliminary draft report and agrees with the written final report. Schedule with follow up appointment PFT performed at:->[facility] Adult PFT [facility]- [id number] Procedure:->Spirometry Procedure:->Oxygen Assessment Titration Pulmonary Function Test Interpretation SPIROMETRY: There is scooping of the expiratory limb of the flow-volume curve, consistent with expiratory airflow obstruction. There is a decrease in expiratory airflow at middle lung volumes. The FEV1 to FVC ratio is reduced. The inspiratory loop is appropriate for the expiratory flow abnormality. PULSE OXIMETRY: See Oxygen Assessment/Cardiopulmonary Exercise Study-Simple Impression: There is a minimal obstructive defect. Compared with most recent study, there has been significant interval improvement of the FEV1. Nabeel Valerio MD The attending pulmonary physician certifies a physician presence in the [facility] during the administration of aerosolized bronchodilator. The attending pulmonary physician certifies that he has reviewed and interpreted the graphic and numerical data of this pulmonary function study and agrees with the written final report. The lower limit of normal for PaO2 and %HbO2 is age dependent. However, the [facility] Pulmonary Function Laboratory defines hypoxemia as a PaO2 <56 mm Hg or a %HbO2 <89%. Starting on November of 2024 the [facility] Pulmonary Function Laboratory utilizes race neutral GLI Global normative equations. us Mata Olvera MD PFT ORDERABLES Final Result * CT Chest WO Contrast (01/29/2025 10:22 AM CDT) Anatomical Region Laterality Modality Body N/A Computed Tomogra phy 01/29/2025 10:3 0 AM CDT Impressions 01/29/2025 10:[address] findings in keeping with known sarcoidosis, unchanged from prior examination. 2. Large hiatal hernia. Electronically signed by: Renny Bray M.D. Narrative 01/29/2025 10:30 AM CDT EXAMINATION: CT CHEST WO CONTRAST HISTORY: Sarcoidosis TECHNIQUE: Transaxial computed tomographic images of the chest were obtained without intravenous contrast according to the standard protocol. COMPARISON: 03/09/2024 FINDINGS: Redemonstrated are multiple pulmonary nodules with an upper lobe predominance, unchanged in size and distribution compared to the prior study. For reference, right lower lobe pulmonary nodule measures 1.1 cm (image 60). No definite new pulmonary nodule. There is no axillary or supraclavicular adenopathy. Redemonstrated is unchanged mediastinal and hilar adenopathy. There are bilateral calcified breast implants. The heart size normal. No pericardial effusion. There is coronary atherosclerotic disease. Visualized portions the abdomen demonstrate a large hiatal hernia, unchanged from previous examination. Bone windows demonstrate no suspicious lytic or blastic lesions. Procedure Note Renny Bray MD PhD - 01/29/2025 EXAMINATION: CT CHEST WO CONTRAST HISTORY: Sarcoidosis TECHNIQUE: Transaxial computed tomographic images of the chest were obtained without intravenous contrast according to the standard protocol. COMPARISON: 03/09/2024 FINDINGS: Redemonstrated are multiple pulmonary nodules with an upper lobe predominance, unchanged in size and distribution compared to the prior study. For reference, right lower lobe pulmonary nodule measures 1.1 cm (image 60). No definite new pulmonary nodule. There is no axillary or supraclavicular adenopathy. Redemonstrated is unchanged mediastinal and hilar adenopathy. There are bilateral calcified breast implants. The heart size normal. No pericardial effusion. There is coronary atherosclerotic disease. Visualized portions the abdomen demonstrate a large hiatal hernia, unchanged from previous examination. Bone windows demonstrate no suspicious lytic or blastic lesions. IMPRESSION: 1. CT findings in keeping with known sarcoidosis, unchanged from prior examination. 2. Large hiatal hernia. Electronically signed by: Renny Bray M.D. Mata Olvera MD IMG CT PROCEDURES Dasha l Result from Last 3 Months Insurance [facility] MEDICARE ADVANTAGE [facility]IC[facility] Address: [facility] [address] [place] [address] [facility] MEDICARE ADVANTAGE [facility] MEDIC[facility] Address: [facility] [address] [place] [address] Advance Directives For more information, please contact: [phone] Documents on File Type Date Recorded Patient Rn Bsn Expl anation Power of Payroll And Benefits Analyst 03/18/2023 6:29 AM * Full Code (Latest Code Status on File) Date Activated Date Inactivated Comments 03/18/2023 5:46 PM 03/19/2023 8:34 PM Care Teams Testing Director Relationship Specialty Start Date End Date Asher Rodriguez MD [address] [place] [address] PCP - General Internal Medicine 03/12/23
--- OUTSIDE RECORDS SUMMARY | 2025-03-05 08:21 | XMS_ITS | Clinical Summary ---
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 Gender Identity Not on file Sexual Orientation Not on file Plan of Treatment Health Maintenance Due Date Last Done Comments DEXA Bone Density 1950 Hepatitis C Virus (HCV) Screening 1950 TdaP Immunization 1950 Colonoscopy 1995 Colorectal Cancer Screening 1995 Cologuard 2000 Immunochemical Fecal Occult Blood 2000 Mammogram 2000 Pneumococcal Immunization (5 0+ years) (1 of 1 - PCV) 2000 Zoster Immunization (1 of 2) 2000 Influenza Immunization (#1) 2024 SARS-COV-2 Immunization ( - 2023- season) 2024 Respiratory Syncytial Virus (RSV) Immunization (Adult) (1 - 1-dose 75+ series) 2025 Hepatitis B Immunization Aged Out No longer eligible based on patient's age to complete this topic Meningococcal Immunization (ACWY) Aged Out No longer eligible based on patient's age to complete this topic Rotavirus Immunization Aged Out No lo nger eligible based on patient's age to complete this topic
--- OUTSIDE RECORDS SUMMARY | 2025-03-05 08:21 | XMS_ITS | Data Portability ---
Author Organization [facility] Address [address] [place] [address] Care Team Providers Care Senior Speech Pathologist Name Role Phone SALLY MOSS Primary Care Provider Assessment Encounter Date Assessment Date Assessment LastModified by Organization Details LastModified Time 04/06/2024 04/06/2024 Annual gynecological exam performed. Patient will come back in a year unless there are new symptoms. Not available 04/06/2024 11:34:46 Plan of Treatment Reminders Order Date Submit Date Provider Last Modified By Organization Details Last Modified Time Details Appointments None recorded. Lab None recorded. Referral None recorded. Procedures None recorded. Surgeries None recorded. Imaging MAMMO, screening, bilateral 2023 024 tabner1 [facility], [address], [address], [place], [address], 4 16:05:50 Medication Orders None recorded. Patient TargetsNo targets recorded. Patient InstructionsNo instructions recorded. Reason for Referral None Reported. Results Created Date Observation Date Name Description Value Unit Range Abnormal Flag Note LastModifiedBy Organization Detail LastModifiedTime 07/10/20 24 07/10/2024 MAMMO , scree sri, bilat eral No observ ation record ed. [facility] [address], [place], [address], 07/13/2024 12:10:57 Result Notes None recorded. Problems Name Problem SNOMED Code Status Onset Date Resolution Date Notes Provider Name and Address Organization Details Recorded Time Atypical squamous cells of undeterm ined signific ance on cervical Papanico laou smear [id number] Completed 201709/29/2021 Atyp squam cell of undet signfc cyto smr crvx (ASC-US) ;Practic e ID: 0001 Mamie Medeiros [facility] 16:12:[address] Concept Completed 201809/29/2021 Encntr for general adult medical exam w/o abnormal findings ;Practic e ID: 0001 Mamie Medeiros [facility] 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 16:12:37 Screenin g for malignan t neoplasm of rectum Completed 201809/29/2021 Encounte r for screenin g for malignan t neoplasm of rectum;P ractice ID: 0001 Mamie Medeiros [facility] 16:12:34 Evaluati on finding Completed 201809/29/2021 Unsp abnormal cytolog findings in specmn from cervix uteri;Pr actice ID: 0001 Mamie Medeiros [facility] 16:12:21 Mammogra phy abnormal [id number] Completed 201409/29/2021 Unspecif ied abnormal mammogra m;Record ed Elsewher e: No [facility] S ource: EHR Retarder Operator satya: N Practi ce ID: 0001 Rafa lable Time: 11:04:40 AM Mamie Medeiros [facility] 16:12:26 Urinary tract infectio us disease [id number] Completed 201609/29/2021 Urinary tract infectio n, site not specifie d;Record ed Elsewher e: No [facility]at [facility]: EHR Retarder Operator satya: N Eduardo ce ID: 0001 Rafa lable Time: 11:30:00 AM Mamie Medeiros [facility] 16:12:40 Screenin g for malignan t neoplasm of cervix Completed 201109/29/2021 Screenin g for malignan t neoplasm s of the cervix;R ecorded Elsewher e: No Locat ion: [facility] N Erikti ce ID: 0001 Rafa lable Time: 08:30:00 AM Mamie Medeiros [facility] 16:12:31 Body mass index 30+ - obesity 943438117 Completed 201509/29/2021 Body mass index (BMI) 33.0-33. 9, adult;Re corded Elsewher e: No Locat ion: [facility] S ource: EHR Retarder Operator satya: N Erikti ce ID: 0001 Rafa lable Time: 01:30:00 PM Mamie Medeiros [facility] 16:12:18 Speciali zed medical examinat ion Completed 201209/29/2021 Gynecolo gical Examinat ion;Gautam rded Elsewher e: No Locat ion: [facility] S ource: EHR Retarder Operator satya: N Erikti ce ID: 0001 Rafa lable Time: 01:30:00 PM Mamie Medeiros [facility] 16:12:38 Obesity 451170858 Completed 201209/29/2021 Obesity; Recorded Elsewher e: No Locat ion: [facility] S ource: EHR Retarder Operator satya: N Erikti ce ID: 0001 Rafa lable Time: 01:30:00 PM Mamie Medeiros [facility] 16:12:28 Human papillom avirus deoxyrib onucleic acid detected , high risk on cervical specimen [id number] Completed 201709/29/2021 Cervical high risk HPV DNA test positive ;Recorde d Elsewher e: No Locat ion: [facility] S ource: EHR Retarder Operator satya: N Practi ce ID: 0001 Rafa lable Time: 11:15:00 AM Mamie Medeiros [facility] 16:12:23 Acetonur ia [id number] Completed 201609/29/2021 Acetonur ia;Recor ded Elsewher e: No Locat ion: [facility] S ource: EHR Retarder Operator satya: N Practi ce ID: 0001 Rafa lable Time: 11:30:00 AM Mamie Medeiros [facility] 16:12:12 Adult health examinat ion Completed 201109/29/2021 Routine Medical Exam;Rec orded Elsewher e: No Locat ion: [facility] S ource: EHR Retarder Operator satya: N Practi ce ID: 0001 Rafa lable Time: 08:30:00 AM Mamie Medeiros [facility] 16:12:14 Screenin g for malignan t neoplasm of colon Completed 201009/29/2021 Special screenin g for malignan t neoplasm s, colon;Pr actice ID: 0001 Maime Medeiros [facility] 16:12:[address] Concept Completed 201609/29/2021 Encounte r for general adult medical exam w abnormal findings ;Practic e ID: 0001 Mamie Medeiros [facility] 16:12:29 Low risk human papillom avirus deoxyrib onucleic acid detected in specimen from cervix [id number] Completed 201709/29/2021 Cervical low risk HPV DNA test positive ;Practic e ID: 0001 Mamie Medeiros [facility] 16:12:24 Evaluati on finding [id number] Completed 201609/29/2021 Oth abn and inconclu sive findings on dx imaging of breast;R ecorded Elsewher e: No Locat ion: Jennifer philippe [facility] S ource: EHR Retarder Operator satya: N Eduardo ce ID: 0001 Rafa lable Time: 11:30:00 AM Mamie almonte [facility] 16:12:20 Uterine prolapse 33772371 Active 2021 Stacey Andrea [facility] [address], [place], [address], [facility] 2 15:44:49 Cystocel e 306855907 Active 2021 Stacey Andrea [facility] [address], [place], [address], [facility] 2 15:44:57 Problem Notes None recorded. Procedures Surgical History Date Name Laterality Status Provider Name and Address Organization Details Recorded Time 12/28/19 23 Pessary Check completed [facility] [address], [place], [address], [facility] 12/28/2022 11:00:39 09/14/20 22 Pessary Check completed [facility] [address], [place], [address], [facility] 09/14/2022 13:09:28 06/22/20 22 Pessary Check completed [facility] [address], [place], [address], [facility] 06/22/2022 11:06:48 03/23/20 22 Pessary Check completed [facility] [address], [place], [address], [facility] 03/23/2022 11:42:13 02/06/20 22 Pessary Insertion completed Stacey Andrea, [facility] [address], [place], [address], [facility] 02/05/2022 14:57:39 11/04/19 22 Date of Last Mammogram completed [facility] 12/03/2021 12:53:48 06/26/20 19 Date of Last Pap Smear completed [facility] 12/03/2021 12:38:02 10/14/20 18 Most Recent Bone Density completed [facility] 12/03/2021 12:38:28 05/20/20 18 Colposcopy completed [facility] 12/03/2021 12:39:34 11/01/19 17 Date of Last Colonoscopy completed [facility] 12/03/2021 13:03:15 tonsilectomy/ad enoids completed Mamie Medeiros [facility] 09/29/2021 20:26:08 Imaging Results Imaging Date Name Status LastModified by Organiz ation Details LastModified Time 07/10/2024 MAMMO, screening, bilateral completed [facility] [address], [place], [address], 07/13/2024 12:10:57 Procedure Notes None recorded. Medical Equipment None Reported. Allergies No known drug allergies Medications Name Sig Start Date Stop Date Status Note LastModified by Organization Details LastModified Time amoxicill in 500 mg capsule TAKE 2 CAPSULES BY MOUTH NOW THEN TAKE 1 CAPSULE THREE TIMES DAILY UNTIL GONE 04/06 completed Not Available Not Available Not Available prednison e 10 mg tablet TAKE 4 TABS BY MOUTH DAILY FOR 5 DAYS, THEN TAKE 2 TABS FOR 5 DAYS, THEN TAKE 1 TAB DAILY FOR 20 DAYS 04/06 completed Not Available Not Available Not Available paroxetin e 10 mg tablet take 1 tablet by oral route every day 06/26 completed Prescrib ed Elsewher e: No Locat ion: [facility] odify By: ana gupta DateTime : 11/17/19 09:30:00 AM Not Available Not Available Not Available atorvasta tin 20 mg tablet TAKE 1 TABLET BY MOUTH ONCE DAILY active Not Available Not Available No t Available lisinopri l 20 mg-hydroc hlorothia zide 12.5 mg tablet TAKE 1 TABLET BY MOUTH ONCE DAILY 04/06 completed Not Available Not Available Not Available azithromy cortney 250 mg tablet TAKE 2 TABLETS BY MOUTH ON DAY 1, AND THEN TAKE 1 TABLET BY MOUTH ONCE A DAY ON DAY 2 THROUGH DAY 5 04/06 completed Not Available Not Available Not Available benzonata te 200 mg capsule TAKE 1 CAPSULE BY MOUTH THREE TIMES DAILY 04/06 completed Not Available Not Available Not Available prednison e 5 mg tablet TAKE 1 TABLET BY MOUTH ONCE DAILY 04/06 completed Not Available Not Available Not Available sulfameth oxazole 800 mg-trimet hoprim 160 mg tablet TAKE 1 TABLET BY MOUTH EVERY 12 HOURS 04/06 completed Not Available Not Available Not Available tramadol 50 mg tablet 12/03 completed Not Available Not Available Not Available amoxicill in 500 mg tablet take 1 tablet by oral route 3 times every day for 10 days 10/20 completed Prescrib ed Elsewher e: No Locat ion: [facility] odify By: scott yeh DateTime : 10/19/20 11:26:40 AM Not Available Not Available Not Available mycopheno late mofetil 500 mg tablet TAKE 1 TABLET BY MOUTH TWICE DAILY 04/06 completed Not Available Not Available Not Available Macrobid 100 mg capsule take 1 capsule by oral route every 12 hours with food, as directed 11/17 completed Prescrib ed Elsewher e: No Locat ion: [facility] odify By: saniya michelle DateTime : 10/11/20 11:30:00 AM Not Available Not Available Not Available pravastat in 10 mg tablet 06/22 completed Not Available Not Available Not Available cephalexi n 500 mg capsule 09/29 completed Not Available Not Available Not Available beatriz leslie 09/11 completed Prescrib ed Elsewher e: Yes Loca tion: [facility] odify By: wilbur michelle DateTime : 07/25/20 12 08:30:00 AM Not Available Not Available Not Available lisinopri l 20 mg-hydroc hlorothia zide 25 mg tablet active Not Available Not Available No t Available lorazepam 1 mg tablet 06/22 completed Not Available Not Available Not Available cefdinir 300 mg capsule TAKE 1 CAPSULE BY MOUTH EVERY 12 HOURS 04/06 completed Not Available Not Available Not Available lisinopri l 2.5 mg tablet 06/22 completed Not Available Not Available Not Available amoxicill in 875 mg-potass ium clavulana te 125 mg tablet TAKE 1 TABLET BY MOUTH TWICE DAILY 04/06 completed Not Available Not Available Not Available Amabelz 0.5 mg-0.1 mg tablet take 1 tablet by oral route every day 06/26 completed Prescrib ed Elsewher e: Yes Loca tion: [facility] odify By: ana gupta DateTime : 11/17/19 19 09:30:00 AM Not Available Not Available Not Available Vitals Date Recorded Body height Body mass index (BMI) Body weight Provider Name and Address Organization Details Last Updated DateTime 03/23/2022 157.48 cm 33 kg/m2 37259.35 g Mamie Medeiros [facility] 03/23/2022 11:21:29 Date Recorded Systolic blood pressure Diastolic blood pressure Provider Name and Address Organization Details Last Updated DateTime 03/23/2022 124 mm[Hg] 84 mm[Hg] Stacey Andrea [facility] [address], [place], [address], [facility] 03/23/2022 11:38:06 Date Recorded Body height Body mass index (BMI) Body weight Provider Name and Address Organization Details Last Updated DateTime 06/22/2022 157.48 cm 33 kg/m2 40265.35 g Mamie Waldemar [facility] 06/22/2022 10:43:04 Date Recorded Systolic blood pressure Diastolic blood pressure Provider Name and Address Organization Details Last Updated DateTime 06/22/2022 122 mm[Hg] 74 mm[Hg] Stacey Andrea, [facility] [address], [place], [address], [facility] 06/22/2022 11:04:17 Date Recorded Body height Provider Name an d Address Organization Details Last Updated DateTime 09/14/2022 157.48 cm Mamie Medeiros [facility] 09/14/2022 10:32:03 Date Recorded Systolic blood pressure Diastolic blood pressure Provider Name and Address Organization Details Last Updated DateTime 09/14/2022 126 mm[Hg] 74 mm[Hg] Stacey Andrea, [facility] [address], [place], [address], [facility] 09/14/2022 13:06:38 Date Recorded Body height Body mass index (BMI) Body weight Provider Name and Address Organization Details Last Updated DateTime 12/28/2022 157.48 cm 31.9 kg/m2 29773.23 g Mamie Hill [facility] 12/28/2022 10:41:46 Date Recorded Systolic blood pressure Diastolic blood pressure Provider Name and Address Organization Details Last Updated DateTime 12/28/2022 132 mm[Hg] 74 mm[Hg] Stacey Andrea, [facility] [address], [place], [address], [facility] 12/28/2022 10:58:15 Date Recorded Body height Body mass index (BMI) Body weight Systolic blood pressure Diastolic blood pressure Provider Name and Address Organization Details Last Updated DateTime 04/06/2024 157.48 cm 29.3 kg/m2 45835.78 g 147 mm[Hg] 76 mm[Hg] Keri Birmingham [facility] 4 11:36:39 Social History Question Answer Notes LastModified by Organizat ion Details LastModified Time Tobacco Smoking Status Never Smoker Isatu Camacho [facility] 12/28/2022 10:32:36 Do You Have An Advance Directive? No Information n ot available 01/27/2022 What Is Your Level Of Alcohol Consumption? Occasional Information not available 09/29/2021 Are You Blind Or Do You Have Difficulty Seeing? No Information n ot available 09/29/2021 What Is Your Level Of Caffeine Consumption? Moderate Information not available 01/27/2022 In The 14 Days Before Symptom Onset, Have You Had Close Contact With A Laboratory-confirm ed COVID-19 While That Case Was Ill? No Information n ot available 01/27/2022 In The 14 Days Before Symptom Onset, Have You Had Close Contact With A Person Who Is Under Investigation For COVID-19 While That Person Was Ill? No Information not available 04/06/2024 Have You Been To An Area Known To Be High Risk For COVID-19? No Information not available 01/27/2022 Are You Deaf Or Do You Have Serious Difficulty Hearing? Yes Information not available 01/27/2022 What Type Of Diet Are You Following? REGULAR Information n ot available 09/29/2021 What Is The Highest Grade Or Level Of School You Have Completed Or The Highest Degree You Have Received? [id number] Information not available 01/27/2022 What Is Your Occupation? Retired Information not available 01/27/2022 Are There Any Guns Present In Your Home? No Information not available 01/27/2022 Do You Use Protection During Sex? Usually Information not available 01/27/2022 Do You Use Your Seat Belt Or Car Seat Routinely? Yes Information not available 09/29/2021 Do You Have Smoke And Carbon Monoxide Detectors In Your Home? Yes Information not available 09/29/2021 How Much Tobacco Do You Smoke? No Information not available 01/27/2022 Do You Feel Stressed (tense, Restless, Nervous, Or Anxious, Or Unable To Sleep At Night)? [id number] Information not available 09/29/2021 Do You Use Any Illicit Or Recreational Drugs? No Information not available 09/29/2021 Do You Use Sunscreen Routinely? Yes Information not available 09/29/2021 Have You Used IV Drugs? No Information not available 01/27/2022 Sex: Unknown Functional Status Question Answer Note LastModified by Organizat ion Details LastModified Time Do you have difficulty walking or climbing stairs? No [email or web address] Information not available 12/28/2022 Are you able to walk? YESWOREST Information not available 09/29/2021 Are you able to care for yourself? Yes [email or web address] Information not available 12/28/2022 Do you have difficulty dressing or bathing? No [email or web address] Information not available 12/28/2022 What is your exercise level? Occasional Information not available 09/29/2021 Mental Status None recorded. Family History Relationship Description Onset Age of this Age Resolved Age Notes LastModified by Organization Details LastModified Time Mother Malignant neoplasm of ovary Not available 2020 20:07:31 Medical History Condition Response Other Y Hypertension Y Gynecological History Statement/Question Response Abnormal Pap Y Date of Last Mammogram 11/04/2021 Date of LMP 11/01/2000 On BCP's at Conception? N Was last menstrual period normal Y STIs/STDs N HPV Vaccine N Colposcopy 05/20/2018 Current Control Method Menopause Age at First Child 21 If Post Menopausal, Age at Menopause 51 Are cycles usually normal N Date of Last Colonoscopy 11/01/2016 Most Recent Bone Density 10/14/2018 Sexually Active? Y Menses Monthly N Age of first menstrual cycle 13 Date of Last Pap Smear 06/26/2019 Sexual Problems? N Desired Control Method N/A LMP Unknown Y Obstetrics History GPAL:G 2 P 2 0 0 2 Type Value Full Term 2 Living 2 Total 2 Past Encounters Encounter ID Performer Location Encounter Start Date Encounter Closed Date Diagnosis/Indication Diagnosis SNOMED-CT Code Diagnosis ICD10 Code Diagnosis Note [id number] Stacey Andrea , [facility] [address] [address] 01/27/2022 13:27:17 01/27/2022 14:59:46 Gynecologic examination 06779345 Z01.419 Take Calcium with Vitamin D 12-1500mg daily. Do monthly self breast exams. It is advised to get annual flu shot in the fall and she could obtain at [facility] or [facility] care clinic. If you haven't received the Tdap vaccine in the last 10 years you should obtain one as well. Have mammogram yearly, bone density every 2-3 years and colonoscop y every 5-10 years depending on findings and history. Engage in daily exercise of low impact aerobic exercise 45-60 minutes 4-5 times weekly. Avoid tobacco and illicit drugs as well as using moderation with alcohol intake less than 1-2 8 oz beverages daily. This lifestyle behavior pattern will lead to less health conditions and longer life span. If BMI greater than 25 weight watchers or dietary consult advised. Questions have been answered. Patient appears to understand instructio ns, but if you have any further questions call or respond to this email Pap/hpv d/c per asccp STD Screen declined-n ot sa with spouse Genetic Screen discussed, declined Colon Screen UTD PCCP Dexa Screen UTD PCP Routine Labs UTD PCPMammo Done for 11/2021. Prolapse o f female genital organs 32562222 N81.9 Will return for a pessary fitting 30mins visit for this issue.Pref ers to start with conservati ve measures vs consult urogyn for bladder sling/othe r consult. [id number] Stacey Andrea [facility] [address] [address] 02/05/2022 14:18:30 02/05/2022 15:01:38 Cystocele 323300348 N81.10 Grade 0-1Pessary fitting completed (see procedure notes).Pes mitchell-ring with support #6 seems to be a great fit.We will order one for her own.Call if any issues.Onc e we have her device we will call her & she can return ours and we will put hers in.Then, we can educate her on how to remove it herself as well. [id number] [facility] [address],[place] [address] 02/06/2022 14:26:22 02/06/2022 16:59:42 Cystocele with second degree uterine prolapse 990119134 N81.2 Unbillable visit.Exch anged size 6 pessary ring with support for the size 7 ring with support.Wi ll contact us on wednesday to ensure this is the correct size and it has stayed in place with goals met. If this one doesn't work we will need to refer to Dr. Sergei Lugo Urogyn for further pessary fitting/ev aluation. [id number] Stacey Andrea [facility] [address],[place] [address] 03/23/2022 11:03:54 03/23/2022 11:50:51 Cystocele with second degree uterine prolapse 661098906 N81.2 Removed pessary.Ex am wnlReplace d with her own pessary device.KIERAN ES IT!RTO x 3mos Pessary cleaning Time spent in visit is a total of 15 mins with at least 50% of visit consisting of counseling and review of plan of care. [id number] Stacey Andrea [facility] [address],[place] [address] 06/22/2022 10:26:37 06/22/2022 11:13:43 Cystocele with second degree uterine prolapse 755459237 N81.2 Removed pessary.Ex am wnlRTO x 3mos Pessary cleaning Time spent in visit is a total of 15 mins with at least 50% of visit consisting of counseling and review of plan of care. [id number] Stacey Andrea [facility] [address],[place] [address] 09/14/2022 10:21:17 09/14/2022 13:40:25 Cystocele with second degree uterine prolapse 866304777 N81.2 See procedure notes.RTO x 3mos next pessary cleaning or prn as needed. [id number] Stacey Andrea [facility] [address],[place] [address] 12/28/2022 10:31:23 12/28/2022 11:09:21 Cystocele with second degree uterine prolapse 968297157 N81.2 See procedure notes.RTO x 1yr or prn yearly visit. [id number] Stacey Andrea , [facility] [address] [address] 04/06/2024 11:26:11 04/06/2024 12:06:52 Gynecologic examination 14651560 Z01.419 Take Calcium with Vitamin D 12-1500mg daily. Do monthly self breast exams. It is advised to get annual flu shot in the fall and she could obtain at [facility] or [facility] clinic. If you haven't received the Tdap vaccine in the last 10 years you should obtain one as well. Have mammogram yearly, bone density every 2-3 years and colonoscop y every 5-10 years depending on findings and history. Engage in daily exercise of low impact aerobic exercise 45-60 minutes 4-5 times weekly. Avoid tobacco and illicit drugs as well as using moderation with alcohol intake less than 1-2 8 oz beverages daily. This lifestyle behavior pattern will lead to less health conditions and longer life span. If BMI greater than 25 weight watchers or dietary consult advised. Questions have been answered. Patient appears to understand instructio ns, but if you have any further questions call or respond to this email Pap/hpv d/c per asccpSTD Screen-dec lined (spouse recently )Maricel ic Screen discussed, declinedCo flori Screen UTD PCCPDexa Screen UTD PCPRoutine Labs UTD PCPMammo ordered Screening mammography 24 784169 Z12.31 Prolapse o f female genital organs [id number] N81.9 Pessary working great.She is able to remove, clean and reinsert this device weekly herself.No issuesNo sx's of issues with use of this device.No changes that need to be made at this time. Health Concerns Section Related Observation LastModified by Organization Anthony ls LastModified Time None Recorded Concern Status LastModified by Organization Details LastModified Time None Recorded Advance Directives Directive N: Payers Encounter Date Sequence Insurance Name Policy Number Policy Bunn Covered Member ID Bunn Member ID Guarantor Name 03/23/2022 1 [facility] (MEDICARE REPLACEMENT/A DVANTAGE - PPO) [id number] Dorina L [place] [id number] Dorina L [place] 03/23/2022 2 [facility] (MEDICARE REPLACEMENT/A DVANTAGE - PPO) [id number] Dorina L [place] [id number] Dorina L [place] 06/22/2022 1 [facility] (MEDICARE REPLACEMENT/A DVANTAGE - PPO) [id number] Dorina L [place] [id number] Dorina L [place] 06/22/2022 2 [facility] (MEDICARE REPLACEMENT/A DVANTAGE - PPO) [id number] Dorina L [place] [id number] Dorina L [place] 09/14/2022 1 [facility] (MEDICARE REPLACEMENT/A DVANTAGE - PPO) [id number] Dorina L [place] [id number] Dorina L [place] 12/28/2022 1 [facility] (MEDICARE REPLACEMENT/A DVANTAGE - PPO) [id number] Dorina L [place] [id number] Dorina L [place] 04/06/2024 1 [facility] (MEDICARE REPLACEMENT/A DVANTAGE - PPO) [id number] Dorina L [place] [id number] Dorina L [place] Notes Date Note Type Note Provider Name and Address Organization Details Recorded Time 03/23/2022 text/html Here today for pessary cleaning & insertion of her new pessary device. OCTAVIA Rivas [address], [place], [address], [facility] 03/23/2022 11:46:24 06/22/2022 text/html Here today for pessary cleaning & insertion of her new pessary device. RASHID Rivas [address], [place], [address], [facility] 06/22/2022 11:07:54 09/14/2022 text/html Here today for 3mos pessary cleaning. RASHID Rivas [address], [place], [address], [facility] 09/14/2022 13:10:47 12/28/2022 text/html Here today for pessary cleaning x 3mos check up. [facility] [address], [place], [address], [facility] 12/28/2022 11:01:44 04/06/2024 text/html Annual Director [employer] Post-MenopausalRe ported bypatientLisset mouna Symptoms:no menopausal symptoms; normal vaginal lubrication Vaginal Bleeding:history of menopause having occurred; no history of post menopausal bleeding Urinary Symptoms:no hematuria; no incontinence; no nocturia; no urinary frequency Vulva:no genital lesion; no vulvar atrophy Vagina:normal vaginal discharge; no vaginal atrophy Breast:no breast lump; no nipple discharge; no breast pain Sexual Complaints:no sexual complaints Psychological Symptoms:no depression; no anxiety Preventive Measures:encourag e regular mammograms starting age 40; encourage self breast examination; encourage regular exercise; encourage no tobacco use; needs to schedule mammogram; history of recent colonoscopy Stacey Andrea [facility] [address], [place], [address], [facility] 04/06/2024 12:03:53 OBGyn Episode Ob Episode Information Episode Created Date Number of Fetuses Patient Bloodtype Patient rh Status Prepregnancy Weight lbs Domestic Partner Domestic Partner Phone Father Name Expressive Art Therapist Status 12/03/19 22 1 CLOSED Fetus Data First Name Last Name Admitted to NICU Weight (g) Sex Living Outcome Pediatric Complications Fetus ID Race Codes Race Delivery Type Full Term [id number] Vaginal Delivery Alfred Calculation Initial Alfred Date Initial Exam Date Initial Exam Provider Initial Ultrasound Date Last Menstrual Period Date Ultra Sound Weeks Gestation 0 Eighteen To Twenty Week Alfred Update Ultra Sound Date Fundal Height At Umbil Quickening Date Ultra Sound Latest Weeks Gestation Final Alfred Confirmed By Final Alfred Confirmed Date Final Alfred Date Ultra Sound Latest Days Gestation 0 0 Menstrual History Last Menstrual Date Menses Monthly On Bcp Conception Prior Menses Frequency Hcg Plus Date Menarche Onset Age Delivery Information Delivery Date Delivery Type Labor Anesthesia Weeks Gestation Incision Type Labor Labor Length Hrs Delivered By Post Complications Tubal Sterilization Discharge Date Comments 2 Discharge Information Feeding Method Contraceptive Method Maternal HG B and HCT Levels Ob Episode Information Episode Created Date Number of Fetuses Patient Bloodtype Patient rh Status Prepregnancy Weight lbs Domestic Partner Domestic Partner Phone Father Name Expressive Art Therapist Status 12/03/19 22 1 CLOSED Fetus Data First Name Last Name Admitted to NICU Weight (g) Sex Living Outcome Pediatric Complications Fetus ID Race Codes Race Delivery Type Full Term [id number] Vaginal Delivery Alfred Calculation Initial Alfred Date Initial Exam Date Initial Exam Provider Initial Ultrasound Date Last Menstrual Period Date Ultra Sound Weeks Gestation 0 Eighteen To Twenty Week Alfred Update Ultra Sound Date Fundal Height At Umbil Quickening Date Ultra Sound Latest Weeks Gestation Final Alfred Confirmed By Final Alfred Confirmed Date Final Alfred Date Ultra Sound Latest Days Gestation 0 0 Menstrual History Last Menstrual Date Menses Monthly On Bcp Conception Prior Menses Frequency Hcg Plus Date Menarche Onset Age Delivery Information Delivery Date Delivery Type Labor Anesthesia Weeks Gestation Incision Type Labor Labor Length Hrs Delivered By Post Complications Tubal Sterilization Discharge Date Comments 4 Discharge Information Feeding Method Contraceptive Method Maternal HG B and HCT Levels
--- OUTSIDE RECORDS SUMMARY | 2025-03-05 08:21 | XMS_ITS | Clinical Summary ---
Author Organization [facility] Address [address] [place] [address] Care Team Providers Care Signal Intelligence/Electronic Warfare Name Role Phone Asher Rodriguez MD Primary Care Provider Allergies No known active allergies Medications atorvastatin [...] of pessary 03/09/2023 Uterine prolapse 02/06/2022 03/09/2023 Encounters Date Type Department Care Team Description 01/29/2025 12:30 PM CDT Office Visit [facility] Pulmonary [address] [place] [address] Advanced Medicine [address]th [place] [address] [place] [address] Mata Olvera MD Sarcoidosis (Primary Dx) 01/29/2025 10:33 AM CDT - 01/29/2025 11:59 PM CDT Hospital Encounter [facility]monary [address] [place] [address] [address] [place] [address] Sarcoidosis Discharge Disposition: Discharge to home or self care 01/29/2025 9:58 AM CDT - 01/29/2025 11:59 PM CDT Hospital Encounter [facility] [address] [place] [address] Mata Olvera MD Sarcoidosis Discharge Disposition: Discharge to home or self care 01/29/2025 Orders Only [facility] Pulmonary [address] [place] [address] Advanced Medicine 8th [place] [address] [place] [address] Mata Olvera MD from Last 3 Months Surgical History Surgery Date Site/Laterality Comments BREAST SURGERY 11/01/1984 - 10/31/1985 implants TONSILLECTOMY 11/01/1956 - 10/31/1957 Family History Medical History Relation Name Comments Brain cancer Brother Bone cancer Father Colon cancer Father Anesthesia problems Neg Hx Relation Name Status Comments Brother Father Social History Tobacco Use Types Packs/Day Years [...] on file 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 Gender Identity Not on file Sexual Orientation Not on file Obstetrics History Last Filed Vital Signs Vital Sign Reading [...] 01/29/2025 12:44 PM CDT Plan of Treatment Health Maintenance Due Date Last Done Comments Colon Cancer Screening-Colonoscopy 1950 Depression Screening 1950 Hepatitis C Screening 1950 Osteoporosis Screening-Bone Density Scan 1950 DTaP/Tdap/Td Vaccine (1 - Tdap) 1961 Hepatitis B Screening 1968 Zoster Vaccine (1 of 2) 1969 Well Visit 65+ 2015 Pneumococcal vaccine 65+ (2 of 2 - PPSV23) 05/28/2017 04/02/2017 Fall Risk Assessment 03/19/2024 03/19/2023 Covid-19 Vaccine (5 - 4-2 5 season) 2024 05/06/2022, 09/02/2021, 01/11/2021, Additional history exists Influenza Vaccine (Season Ended) 2025 08/28/2022, 08/13/2021, 08/14/2020, Additional history exists Breast Cancer Screening-Mammogram 07/10/2025 07/10/2024, 11/04/2021, 06/04/2010 Procedures Procedure Name Priority Date/Time Associated Diagnosis Comments PULMONARY FUNCTION TEST (PFT) Routine 01/29/2025 11:[address] CHEST WO CONTRAST Schedule Routine, Read Routine (OP Routine) 01/29/2025 10:22 AM CDT Sarcoidosis from Last 3 Months Results * Pulmonary Function Test - (01/29/2025 11:45 AM CDT) FVC PRE 2.69 L [facility] FVC %PRE PRED 114 % [facility] FEV1 PRE 1.65 L [facility] FEV1 %PRE PRED 89 % [facility] FEV1/FVC PRE 61.3 % [facility] Anatomical Region Laterality Modality PFT 01/29/2025 11:3 0 AM CDT Narrative 01/29/2025 4:56 PM CDT Table formatting from the original result was not included. [facility] Division of Pulmonary & Critical Care Medicine [address] [place] [address]; [place] [address]; [place] [address]; [phone] Pulmonary Function Laboratory Pulmonary Stress Test Simple/Oxygen [...] Work [distance (m) x body wt (kg)]: 58801 kg.m (normal >60,000kg.m) Oxygen required to maintain [...] Schedule with follow up appointment PFT performed at:->[facility] Adult PFT [facility]- [id number] Procedure:->Spirometry Procedure:->Oxygen Assessment [...] and %HbO2 is age dependent. However, the [facility] Pulmonary Function Laboratory defines hypoxemia as a PaO2 <56 mm Hg or a %HbO2 <89%. Starting on November of 2024 the [facility] Pulmonary Function Laboratory utilizes race neutral GLI [...] l Result from Last 3 Months Insurance MEDICARE ADVANTAGE [facility] Address: [address] [address] MEDICARE ADVANTAGE [facility] Address: [id number] [place] [address] Advance Directives For more information, please contact: [phone] Documents on File Type Date Recorded Patient Certified Pediatric Nurse Practitioner Expl anation Power of Community Engagement Representative 03/18/2023 6:29 AM * Full Code (Latest Code Status on File) Date Activated Date Inactivated Comments 03/18/2023 5:46 PM 03/19/2023 8:34 PM Care Teams Signal Intelligence/Electronic Warfare Relationship Specialty Start Date End Date Asher Rodriguez MD [address] [address] PCP - General Internal Medicine 03/12/23
== END 2025-03-05 08:14 | disposition home or self-care (01) ==
LOC: ANHIMG 08:14
PROVIDERS: PCP Internal Medicine; Visit Provider Internal Medicine
DX: M81.0 Age-related osteoporosis without current pathological fracture (principal)
CPT/HCPCS: 77080

== ENCOUNTER 2025-03-27 10:35 | Outpatient (CLI) | payer MEDICARE, SELFPAY ==
--- NOTE | ~2025-03-27 | US_ITS ---
Renal-Bladder ultrasound Clinical History: Chronic renal failure Technique: Real-time sonographic imaging of the kidneys and urinary bladder was performed. Findings: The right kidney measures 9.2 cm in length and the left kidney measures 9.7 cm. There is no hydronephrosis or renal calculus identified. Renal cortical echogenicity is within normal limits. No renal mass lesion is identified. The urinary bladder is moderately distended at the time of this exam. No intraluminal echoes are iden tified. No abnormal wall thickening is seen. Impression: Unremarkable ultrasound of the kidneys and urinary bladder. Reviewed, dictated and finalized at location M. Impression: Unremarkable ultrasound of the kidneys and urinary bladder.
== END 2025-03-27 10:36 | disposition home or self-care (01) ==
LOC: GOSHIMG 10:36
PROVIDERS: PCP Internal Medicine; Visit Provider Internal Medicine
DX: N18.9 Chronic kidney disease, unspecified (principal)
CPT/HCPCS: 76775